=== PATIENT | male | born 1995 | race Caucasian/White ===

== ENCOUNTER 2019-10-17 09:15 | Emergency (ER) | payer OTHER ==
[~2019-10-17] VITALS: Ht 182.9 cm; Wt 75.0 kg
[~2019-10-17 09:15] MED LIST: C 250 PO; FLEXERIL PO; MERCAPTOPUR50 MG OR; MIRALAX3350 N1 OR; NO HOME MEDS; PENTASA500 MG PO; PERCOCET 5/321 COMBO PO; PREDNISONE50 MG; PREDNISONE50 MG PO; PREVACID30 M3 OR; PRILOSEC20 MG OR; RANITIDINE150 MG PR; REMICADE INJ100 MG IV; TUBERSOL5 MG/0.1 M ID; ZANTAC150 M1 OR; [UNRECOGNIZED DRUG - OTHER] PO
[2019-10-17 09:27] LABS: HEMATOCRIT 41.1 % (39.0-50.0); HEMOGLOBIN 14.6 g/dl (14.0-18.0); IMMATURE GRANULOCYTES 0.8 % (0.0-5.0); MEAN CORPUSCULAR HGB 30.5 pG CALC (26.0-32.0); MEAN CORPUSCULAR HGB CONC 35.5 g/L CALC (32.0-36.0); NEUT# 5.06 thou/uL (1.82-7.42); RED BLOOD COUNT 4.78 mill/uL (4.70-6.10); RED CELL DISTRI WIDTH 11.4 % (11.5-15.5)
[2019-10-17 09:51] LABS: ALBUMIN 4.7 g/dL (3.2-5.0); ALKALINE PHOSPHATASE 64 u/l (38-126); ANION GAP 18 (6-22 (CALC)); BUN 15 mg/dL (9-20); BUN/CREATININE RATIO 13 (12-20 (CALC)); CARBON DIOXIDE 21 mmol/l (22-30); CHLORIDE 108 mmol/l (95-108); CREATININE 1.1 mg/dL (0.7-1.3); GFR > 60 ML/MIN (>=60 (CALC)); GFR FOR AFR.AMER. > 60 ML/MIN (>=60 (CALC)); LIPASE 270 u/l (23-300); POTASSIUM 3.9 mmol/l (3.5-5.1); SODIUM 144 mmol/l (137-146); TOTAL PROTEIN 7.7 g/dL (6.3-8.2)
[2019-10-17 09:52] LABS: BILIRUBIN, TOTAL 0.4 mg/dL (0.0-1.4); SGOT/AST 51 u/l (17-59)
[2019-10-17 09:57] LABS: URINE BILIRUBIN - DIPSTICK NEGATIVE (NEGATIVE); URINE BLOOD DIPSTICK LARGE (NEGATIVE); URINE COLOR YELLOW; URINE GLUCOSE - DIPSTICK NEGATIVE (NEGATIVE); URINE KETONE NEGATIVE (NEGATIVE); URINE LEUK ESTERASE NEGATIVE (NEGATIVE); URINE NITRITE - DIPSTICK NEGATIVE (Negative); URINE PH 5.5 (4.5-8.0); URINE PROTEIN - DIPSTICK NEGATIVE (NEG-TRACE); URINE SPECIFIC GRAVITY <=1.005; URINE UROBILINOGEN - DIPSTICK 0.2 E.U./dL (0.2)
[2019-10-17 11:41] VITALS: BP 122/68
== END 2019-10-17 11:52 | disposition home or self-care (01) | DRG 313 ==
LOC: ED 09:15
PROVIDERS: Family Medicine
DX: R07.89 Other chest pain (principal); M54.5 Low back pain; S00.81XA Abrasion of other part of head, initial encounter; V44.5XXA Car driver injured in collision with heavy transport vehicle or bus in traffic accident, initial encounter
CPT/HCPCS: Q9967